=== PATIENT | male | born 1950 | race Caucasian/White ===

== ENCOUNTER → 2021-05-24 08:49 | Outpatient (BNVA) | payer MEDICARE, SELFPAY | PROVIDERS: Visit Provider Urology | DX: N40.0 Benign prostatic hyperplasia without lower urinary tract symptoms (principal) | CPT/HCPCS: 51798; 99212 ==

== ENCOUNTER 2022-08-28 14:39 | Outpatient (REF) | payer MEDICARE, SELFPAY ==
[2022-08-28 15:57] LABS: Prostate Specific Antigen 2.29 ng/mL (<0.05-4.0)
== END 2022-08-28 14:40 | disposition home or self-care (01) ==
LOC: HO.LAB 14:39
PROVIDERS: Visit Provider Urology
DX: N40.1 Benign prostatic hyperplasia with lower urinary tract symptoms (principal); N13.8 Other obstructive and reflux uropathy; Z12.5 Encounter for screening for malignant neoplasm of prostate
CPT/HCPCS: 36415; 84153

== ENCOUNTER → 2022-09-04 15:25 | Outpatient (BNVA) | payer MEDICARE, SELFPAY | PROVIDERS: Visit Provider Urology | DX: N40.1 Benign prostatic hyperplasia with lower urinary tract symptoms (principal) | CPT/HCPCS: 99212 ==

== ENCOUNTER 2023-10-15 13:47 | Outpatient (AMB) | payer MEDICARE, SELFPAY ==
--- NOTE | 2023-10-15 13:50 | A.OFFVIS_ITS ---
Intake Intake Visit Reasons: 1y PVR Intake Note: Patient presents today for a follow up/PVR Meds- None Allergies to Antibiotic- Sulfacetamine Blood Thinner- None Patient stated he is not been taking Tamsulosin since few years ago. 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 He is seen for the following urologic conditions. [facility] - lower urinary tract symptoms 12m f/u Low PSA Of medications PVR 25 cc 12 month follow-up PVR and PSA Lower urinary tract symptoms Underwent CECIL prostate procedure early 2019 Prior resume failure with large ball-valve component Significant improvement in voiding after laser procedure PVR prior to procedure 500, current 50 PSA 2/ 2.3 Prior medications tamsulosin Follow-up in 12 months with PSA PFSH Medical History Hemochromatosis Hyperactivity of bladder H/O urinary retention Other obstructive and reflux uropathy Benign prostatic hyperplasia with lower urinary tract symptoms Social History Patient Tobacco Use Status: Former Tobacco user Review of Systems Const Denies chills and Denies fever(s) Card Reports no additional complaints and Denies syncope Resp Denies cough GI Denies abdominal pain and Denies heartburn Reports as per HPI and Denies change in libido Neuro Denies syncope Psych Denies change in libido Endo Denies change in libido Physical Exam Const General: cooperative, healthy appearing, comfortable and no acute distress Orientation/consciousness: patient oriented x3 HEENT Face and sinus: Yes normal facial exam Mouth: moist mucous membranes Neck Neck: Yes normal visual inspection, Yes full ROM and Yes trachea midline Chest Chest palpation & inspection: normal inspection of the chest Resp Effort & Inspection: normal respiratory effort, able to speak in complete sentences and no respiratory distress GI Inspection: Yes normal to inspection Back/Spine/Pelvis Cervical Spine: normal cervical lordosis Thoracic/Lumbar Spine: thoracic and lumbar spine normal to inspection Skin General skin exam: no rashes or lesions noted Neuro General: patient oriented x3, gait normal, tone normal and moves all extremities Extrem General: Yes normal to inspection and Yes capillary refill normal Office Procedures Post Void Residual Post Residual Void Post Void Residual (PVR): 24 [id number] Void Residual by ultrasound Assessment & Plan Assessment & Plan (1) Benign prostatic hyperplasia with lower urinary tract symptoms: Comment: [facility] 2019 Code(s): N40.1 - Benign prostatic hyperplasia with lower urinary tract symptoms Plan Twelve month follow-up PVR PSA Orders: Orders AMB Post Void Residual by ultrasound Today R33.9 - Retention of urine, unspecified Prostate Specific Antigen 364 Days N40.1 - Benign prostatic hyperplasia with lower urinary tract symptoms Patient Instructions: Imaging studies, laboratory and physical exam results were discussed and reviewed in detail. No major barriers to patient understanding were identified. An opportunity to ask questions regarding the treatment plan was provided. All questions were answered. The patient expressed understanding and agreement with the above treatment plan. The patient is aware they should contact our office by phone for worsening of their current condition or the appearance of new urologic symptoms. Compliance is encouraged with any medications and followup testing that is ordered. It is a privilege to participate in the urologic care of your patient. If you have any questions or concerns regarding treatment for the above conditions, or other urologic issues, please do not hesitate to contact me. The office telephone contact is [phone]. This note is constructed using voice recognition software. While every effort has been made to ensure accuracy lead generation marketing manager errors may have been included. Yours sincerely, Dr Brigido Lama MD, [facility] - Urology Providers of Expert, Compassionate Care for the Genitourinary System Coding Level of Care Code Est Pt Level 4 (80645) Diagnoses Benign prostatic hyperplasia with lower urinary tract symptoms N40.1 CPT Codes Post Residual Void - PVR CPT Code: 34389-Cpzz Void Residual by ultrasound ([id number])
== END 2023-10-15 14:33 | disposition home or self-care (01) ==
PROVIDERS: Visit Provider Urology
DX: N40.1 Benign prostatic hyperplasia with lower urinary tract symptoms (principal)
CPT/HCPCS: 99213

== ENCOUNTER → 2023-10-15 13:47 | Outpatient (BNVA) | payer MEDICARE, SELFPAY | PROVIDERS: Visit Provider Urology | DX: N40.1 Benign prostatic hyperplasia with lower urinary tract symptoms (principal); R33.8 Other retention of urine | CPT/HCPCS: 51798; 99212 ==

== ENCOUNTER 2024-09-28 14:36 | Outpatient (REF) | payer MEDICARE, SELFPAY ==
[2024-09-28 16:28] LABS: Prostate Specific Antigen 3.59 ng/mL (<0.05-4.0)
== END 2024-09-28 14:37 | disposition home or self-care (01) ==
LOC: HO.LAB 14:36
PROVIDERS: Visit Provider Urology
DX: N40.1 Benign prostatic hyperplasia with lower urinary tract symptoms (principal); Z12.5 Encounter for screening for malignant neoplasm of prostate
CPT/HCPCS: 36415; 84153

== ENCOUNTER 2024-10-13 13:54 | Outpatient (AMB) | payer MEDICARE, SELFPAY ==
--- NOTE | 2024-10-13 14:04 | A.OFFVIS_ITS ---
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 He is seen for the following urologic conditions. 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 PVR and PSA Lower urinary tract symptoms Underwent CECIL prostate procedure early 2019 Prior resume failure with large ball-valve component Significant improvement in voiding after laser procedure PVR prior to procedure 500, current 50 PSA 09/12 2.3, 10/12 3.6 Prior medications tamsulosin Follow-up in 12 months with PSA [facility] Medical History Hemochromatosis Hyperactivity of bladder H/O urinary retention Other obstructive and reflux uropathy Benign prostatic hyperplasia with lower urinary tract symptoms Social History Patient Tobacco Use Status: Former Tobacco user Office Procedures Post Void Residual Post Residual Void Post Void Residual (PVR): 22 [id number] Void Residual by ultrasound Results AMB Urinalysis, Automated UA Leukoctes 0 Azalia/uL Last Edit by SONIA Day on 10/13/24 15:10 UA Nitrite Negative Last Edit by SONIA Day on 10/13/24 15:10 UA Urobilinogen 3.5 mg/dL Last Edit by SONIA Day on 10/13/24 15:1 0 UA Protein 0 mg/dL Last Edit by SONIA Day on 10/13/24 15:10 UA pH 5.0 Last Edit by Jovi Mehta, [facility] on 10/13/24 15:10 UA Blood 10 Amaury/uL Last Edit by Jovi Mehta, [facility] on 10/13/24 15:10 UA Specific [place] 1.025 Last Edit by Jovi Mehta, [facility] on 10/13/24 15: 10 UA Ketone Negative Last Edit by Jovi Mehta, [facility] on 10/13/24 15:10 UA Bilirubin 0 mg/dL Last Edit by Jovi Mehta, [facility] on 10/13/24 15:10 UA Glucose 0 mg/dL Last Edit by Jovi Mehta, [facility] on 10/13/24 15:10 Assessment & Plan Assessment & Plan Orders: Orders AMB Urinalysis Automated Today Z13.9 - Encounter for screening, unspecified Coding CPT Codes Post Residual Void - PVR CPT Code: 84788-Gesm Void Residual by ultrasound ([id number])
== END 2024-10-13 15:43 | disposition home or self-care (01) ==
LOC: HO.HUSH 13:54
PROVIDERS: Visit Provider Urology
DX: Z13.9 Encounter for screening, unspecified (principal)

== ENCOUNTER → 2024-10-13 13:54 | Outpatient (BNVA) | payer MEDICARE, SELFPAY | PROVIDERS: Visit Provider Urology | DX: N40.1 Benign prostatic hyperplasia with lower urinary tract symptoms (principal) | CPT/HCPCS: 51798; 81003; 99212 ==